=== PATIENT | female | born 1940 | race Caucasian/White ===

== ENCOUNTER 2017-12-22 20:01 | Outpatient (CLI) | payer MEDICARE, OTHER ==
[~2017-12-22 20:01] MED LIST: AMOX-355 PO; ASCO500T20 PO; CALC-250 PO; CALCIUM 500+VI1 EACH PO; CARV6.252 PO; FIBER THERAPY PO; HYDR-2890 PO; HYDR-700 PO; LORA0.5T PO; LVT.112T PO; MULT1CAP27 PO; PRD20T PO; VICODIN 5/325 PO; VITA150T PO
== END 2017-12-23 06:58 | disposition home or self-care (01) ==
LOC: SLEEP 20:01
PROVIDERS: ATTEND Nurse Practitioner Family
DX: G47.33 Obstructive sleep apnea (adult) (pediatric) (principal)
CPT/HCPCS: 95811

== ENCOUNTER 2018-07-26 14:30 | Outpatient (CLI) | payer MEDICARE, OTHER | END 2018-07-26 15:53 | disposition home or self-care (01) | LOC: SLEEP 14:30 | PROVIDERS: ATTEND Otolaryngology Otolaryngology/Facial Plastic Surgery | DX: G47.33 Obstructive sleep apnea (adult) (pediatric) (principal) ==

== ENCOUNTER 2018-08-31 19:54 | Outpatient (CLI) | payer MEDICARE, OTHER | END 2018-09-01 07:05 | disposition home or self-care (01) | LOC: SLEEP 19:54 | PROVIDERS: ATTEND Otolaryngology Otolaryngology/Facial Plastic Surgery | DX: G47.33 Obstructive sleep apnea (adult) (pediatric) (principal); R06.83 Snoring | CPT/HCPCS: 95811 ==

== ENCOUNTER → 2019-04-12 | Outpatient (CLI) | payer MEDICARE, OTHER ==
--- NOTE | 2019-04-12 10:54 | Diagnostic Imaging Report ---
INDICATION: Screening for osteoporosis. COMPARISON: None FINDINGS: The bone mineral density of the spine and left hip was measured. 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 The T score for the spine is -2.4. This does indicate severe osteopenia. The total T score for the left hip is -1.1 and the T score for the left femoral neck is -1.2. These values suggest mild osteopenia. AP Spine L1-L4: [BMD (g/cm2): 0.916] [T-Score: -2.4] [Z-Score: -1.0] [BMD Previous: nan] [BMD % Change: na] LT Hip Neck: [BMD (g/cm2): 0.865] [T-Score: -1.2] [Z-Score: 0.5] LT Hip Total: [BMD (g/cm2):0.863] [T-Score:-1.1] [Z-Score: 0.4] [BMD Previous: na] [BMD % Change: na] RT Hip Neck: [BMD (g/cm2):na] [T-Score:na] [Z-Score:na] RT Hip Total: [BMD (g/cm2):na] [T-score:na] [Z-Score:na] [BMD Previous:na] [BMD % Change:na] *Indicates significant change from prior examination based on 95% confidence level. World Health Organization criteria for BMD interpretation classify patients as Normal (T-score at or above -1.0), Osteopenic (T-score between -1.0 and -2.5) or Osteoporotic (T-score at or below -2.5). LIMITATIONS AND MODIFICATION: None. FRACTURE RISK (FRAX SCORE): The ten year probability of (%): Major Osteoporotic Fracture: [11.2] Hip Fracture: [2.1] IMPRESSION: 1. There is severe osteopenia of the spine but only mild osteopenia of the left hip. 2. The bone mineral density of the right hip could not be measured due to the presence of a total hip prosthesis. 3. See below National Osteoporosis Foundation guidelines on when to potentially initiate pharmacologic therapy. Based on the National Osteoporosis Foundation Guidelines, pharmacologic treatment should be initiated in any of the following, unless clinical conditions suggest otherwise: * Any patient with prior fragility fracture of the hip or vertebrae. A spine fracture indicates 5X risk for subsequent spine fracture and 2X risk for subsequent hip fracture. * Osteoporosis (T-score <-2.5). * Postmenopausal women and men age 50 and older with low bone mass/osteopenia (T-score between -1.0 and -2.5) by DXA and 10-year major osteoporotic fracture greater than 20% or a 10-year probability of hip fracture greater than 3%. These fracture risks are supplied above in the FRAX score, if applicable. * Clinician judgement and/or patient preferences may indicate treatment for people with 10-year fracture probabilities above or below these levels. Dictated by: Dictated on workstation # [id number]
== END ==
LOC: RAD 09:34
PROVIDERS: ATTEND Nurse Practitioner Family
DX: Z13.820 Encounter for screening for osteoporosis (principal); M85.89 Other specified disorders of bone density and structure, multiple sites; Z96.649 Presence of unspecified artificial hip joint; Z78.0 Asymptomatic menopausal state
CPT/HCPCS: 77080

== ENCOUNTER → 2020-02-22 | Outpatient (CLI) | payer MEDICARE, OTHER ==
--- NOTE | 2020-02-22 14:25 | Diagnostic Imaging Report ---
INDICATION: Chronic cough. TIME OF EXAM: 01:28 p.m. Correlation is made with prior chest from 02/07/2013. FINDINGS: Heart size is normal. There is a moderate-sized hiatal hernia. No infiltrates are identified. There is no effusion or pneumothorax. IMPRESSION: 1. Moderate-sized hiatal hernia. 2. No acute cardiopulmonary process is detected. Dictated by: Dictated on workstation # [id number]
== END ==
LOC: RAD FS 13:20
PROVIDERS: ATTEND Otolaryngology Otolaryngology/Facial Plastic Surgery
DX: K44.9 Diaphragmatic hernia without obstruction or gangrene (principal)
CPT/HCPCS: 71046

== ENCOUNTER → 2020-07-12 | Outpatient (CLI) | payer MEDICARE, OTHER ==
--- NOTE | 2020-07-12 11:46 | Diagnostic Imaging Report ---
EXAMINATION: CT Chest without contrast. TECHNIQUE: Multiple contiguous axial images were obtained through the chest without the use of intravenous contrast. All CT scans use one or more of the following dose optimizing techniques: automated exposure control, MA and/or KvP adjustment based on a patient size and exam type, or iterative reconstruction. HISTORY: Pulmonary infiltrates. COMPARISON: Chest radiograph 02/22/2020. FINDINGS: Thyroid: The thyroid is normal. Mediastinum: Heart size is normal without significant pericardial effusion. Calcifications of the aorta and coronary vessels. Thoracic aorta is normal in caliber. No suspicious lymphadenopathy. Lungs and airways: The lungs are clear without consolidation, pleural effusion, or pneumothorax. Biapical fibrosis. There is a 0.3 cm right lower lobe pulmonary nodule (series 3, image 118). The airways are normal. Upper abdomen: A moderate hiatal hernia is present. Musculoskeletal: Multilevel degenerative changes of the spine with a severe chronic compression fracture of the T12 vertebral body. IMPRESSION: 1. No acute abnormality in the chest. 2. A 0.3 cm right lower lobe pulmonary nodule. If patient is low risk for malignancy, no follow-up is indicated. If patient is high-risk for malignancy, consider follow-up CT of the chest in 12 months. Dictated by: Dictated on workstation # [id number]
== END ==
LOC: RAD FS 11:07
PROVIDERS: ATTEND Internal Medicine Pulmonary Disease
DX: R91.1 Solitary pulmonary nodule (principal)
CPT/HCPCS: 71250

== ENCOUNTER → 2023-01-08 | Outpatient (CLI) | payer MEDICARE, OTHER ==
--- NOTE | 2023-01-08 14:51 | Diagnostic Imaging Report ---
PROCEDURE: CT sinuses without contrast TECHNIQUE: Multiple contiguous axial images were obtained through the sinuses without the use of intravenous contrast. Coronal and sagittal reformations were then performed. Auto Exposure Controls were utilized during the CT exam to meet ALARA standards for radiation dose reduction. INDICATION: Recurrent sinusitis. No prior studies are available for comparison. The frontal sinuses clear. There is opacification of posterior right-sided ethmoid air cells. There has been resection of the medial wall the right maxillary sinus with uncinectomy. There is complete opacification of left maxillary sinus and left ostiomeatal complex. Sphenoid is well-aerated. Mastoids are well aerated. There is trace fluid in the right maxillary sinus. Maxillary sinus wall thickening on the right is noted consistent with chronic sinusitis. IMPRESSION: Postsurgical changes. There is a complete opacification left maxillary sinus and ostiomeatal complex consistent with sinusitis. There is opacification of the posterior half of the right ethmoid. No other significant abnormality is seen. Dictated by: Dictated on workstation # [id number]
== END ==
LOC: RAD FS 13:09
PROVIDERS: ATTEND Otolaryngology Otolaryngology/Facial Plastic Surgery
DX: J32.9 Chronic sinusitis, unspecified (principal)
CPT/HCPCS: 70486

== ENCOUNTER 2023-03-27 05:32 | Outpatient (CLI) | payer MEDICARE, OTHER ==
[~2023-03-27] VITALS: Ht 160 cm; Wt 80.9 kg
[2023-03-31] MEDS ORDERED: VENL75CA93 PO (14:40)
[2023-03-31] MEDS ORDERED: ATOR10TA66 PO (14:40)
[2023-03-31] MEDS ORDERED: CARV6.252 PO (14:40)
[2023-03-31] MEDS ORDERED: CETI10TA49 PO (14:40)
[2023-03-31] MEDS ORDERED: OMEP20CA18 PO (14:40)
[2023-03-31] MEDS ORDERED: MELO15TA39 PO (14:40)
[2023-03-31] MEDS ORDERED: MV-M1TAB20 PO (14:40)
[2023-03-31] MEDS ORDERED: FLUT9.9S NS (14:40)
[2023-03-31] MEDS ORDERED: BRAIN HEALTH (14:40)
[2023-03-31] MEDS ORDERED: BUDE10.2 IH (14:40)
[2023-03-31] MEDS ORDERED: UBID10CA5 PO (14:40)
[2023-03-31] MEDS ORDERED: KRIL500C PO (14:40)
[2023-03-31] MEDS ORDERED: CLON0.5T4 PO (14:40)
[2023-03-31] MEDS ORDERED: LEVO100T7 PO (14:40)
== END 2023-04-01 10:23 | disposition home or self-care (01) ==
LOC: PREOP 05:32
PROVIDERS: ATTEND Otolaryngology Otolaryngology/Facial Plastic Surgery
DX: Z01.818 Encounter for other preprocedural examination (principal)

== ENCOUNTER 2023-04-03 06:39 | Day surgery (SDC) | payer MEDICARE, OTHER ==
[2023-04-03] VITALS (11 sets, daily range): BP systolic 119–143; BP diastolic 52–82
[~2023-04-03 06:39] MED LIST changes: +ATOR10TA66 PO; +BRAIN HEALTH; +BUDE10.2 IH; +CETI10TA49 PO; +CLON0.5T4 PO; +FLUT9.9S NS; +KRIL500C PO; +LEVO100T7 PO; +MELO15TA39 PO; +MV-M1TAB20 PO; +OMEP20CA18 PO; +UBID10CA5 PO; +VENL75CA93 PO
[2023-04-03] MEDS ORDERED: LACTATED RINGERS 1,000 ML IV PRN (07:15)
[2023-04-03 07:50] LABS: BASOPHILS % (AUTO) 1 % (0-10); EOSINOPHILS # (AUTO) 0.3 10^3/uL (0.0-0.3); EOSINOPHILS % (AUTO) 5 % (0-10); HEMATOCRIT 33 % (35-52); HEMOGLOBIN 10.9 g/dL (11.5-16.0); LYMPHOCYTES # (AUTO) 2.9 10^3/uL (1.0-4.0); LYMPHOCYTES % (AUTO) 40 % (12-44); MEAN CORPUSCULAR HEMOGLOBIN 31 pg (25-34); MEAN CORPUSCULAR HGB CONC 33 g/dL (32-36); MEAN CORPUSCULAR VOLUME 94 fL (80-99); MEAN PLATELET VOLUME 9.6 fL (9.0-12.2); MONOCYTES # (AUTO) 0.6 10^3/uL (0.0-1.0); MONOCYTES % (AUTO) 9 % (0-12); NEUTROPHILS # (AUTO) 3.3 10^3/uL (1.8-7.8); NEUTROPHILS % (AUTO) 46 % (42-75); PLATELET COUNT 196 10^3/uL (130-400); WHITE BLOOD COUNT 7.2 10^3/uL (4.3-11.0)
[2023-04-03] MEDS ORDERED: LIDOCAINE/EPI 1%-1:100,000 (XYLOCAINE) 20ML ONE (07:59)
[2023-04-03] MEDS ORDERED: BSS 15 ML ONE (07:59)
[2023-04-03] MEDS ORDERED: COCAINE HCL 4% 2 ML SYR ONE (07:59)
[2023-04-03] MEDS ORDERED: PHENYLEPHRINE 0.5% NASAL SPR (NEO-SYNEPHRINE) REG ONE ×2 (07:59→08:36)
[2023-04-03] MEDS ORDERED: ASCO100024 PO (08:02)
[2023-04-03] MEDS ORDERED: AZEL137S11 NS (08:02)
[2023-04-03] MEDS ORDERED: ELDE350C PO (08:02)
[2023-04-03] MEDS ORDERED: UBID10CA5 PO (08:02)
[2023-04-03] MEDS ORDERED: IPRA30SP NS (08:02)
[2023-04-03 08:08] LABS: CALCIUM 9.4 MG/DL (8.5-10.1); CREATININE SERUM 1.3 MG/DL (0.60-1.30); POTASSIUM 4.1 MMOL/L (3.6-5.0)
[2023-04-03] MEDS ORDERED: CEFUROXIME INJECTION 750 MG in NS (IVPB) 50 ML IV ONE (08:15)
[2023-04-03] MEDS ORDERED: HYDROCORTISONE 100 MG/2 ML (Solu-CORTEF) VIAL IV ONE (08:15)
[2023-04-03] MEDS ORDERED: BSS 15 ML TOP ONE (08:35)
[2023-04-03] MEDS ORDERED: HYDROCORTISONE 100 MG/2 ML (Solu-CORTEF) VIAL ONE (08:35)
[2023-04-03] MEDS ORDERED: LIDOCAINE/EPI 1%-1:100,000 (XYLOCAINE) 20ML INJ ONE (08:36)
[2023-04-03] MEDS ORDERED: COCAINE HCL 4% 2 ML SYR NS ONE (08:37)
[2023-04-03] MEDS ORDERED: AMPICILLIN/SULBACTAM INJECTION 1.5 GM in NS (IVPB) 100 ML IV ONE (08:45)
[2023-04-03] MEDS ORDERED: ROCURONIUM 50 MG/5 ML (ZEMURON) VIAL IV ONE (08:53)
[2023-04-03] MEDS ORDERED: ONDANSETRON 4 MG/2 ML (SDV) Z0FRAN ONE (08:53)
[2023-04-03] MEDS ORDERED: LIDOCAINE PF 2% 5 ML (XYLOCAINE) VIAL ONE (08:53)
[2023-04-03] MEDS ORDERED: proPOfol 200 MG/20 ML (DIPRIVAN) VIAL IV ONE (08:53)
[2023-04-03] MEDS ORDERED: fentaNYL INJ 100 MCG/2 ML AMP ONE (08:54)
[2023-04-03] MEDS ORDERED: MIDAZOLAM 2 MG/2 ML (VERSED) VIAL ONE (08:54)
--- NOTE | 2023-04-03 09:22 | Progress Note-Pre Operative ---
Pre-Operative Progress Note Date of Available H&P: Apr 03, 2023 Date H&P Reviewed: Apr 03, 2023 Time H&P Reviewed: 09:00 History & Physical: H&P Reviewed, Patient Examed, No changes noted Changes from last HP NONE Pre-Operative Diagnosis: Right Ethomid Sinus Disease, LEft Sinus Disease EDITH MALONEY MD Apr 03, 2023 09:22
--- NOTE | 2023-04-03 09:23 | Progress Note-Post Operative ---
Post-Operative Progess Note Surgeon (s)/Scheduling Analyst (s) Surgeon EDITH MALONEY MD Scheduling Analyst n/a Pre-Operative Diagnosis Right Ethomid Sinus Disease, LEft Sinus Disease Post-Operative Diagnosis same Post-Op Procedure Note Date of Procedure: Apr 03, 2023 Name of Procedure Performed: Revision Right Ess, LEft Ess Description & Findings Description and Findings: n/a Anesthesia Type get Estimated Blood Loss minimal Packing none. Specimen(s) collected/removed right and left sinus disease EDITH MALONEY MD Apr 03, 2023 09:23
[2023-04-03] MEDS ORDERED: PROMETHAZINE INJ 25 MG/ML (PHENERGAN) AMP IVP PRN (09:30)
[2023-04-03] MEDS ORDERED: HYDROcodone/APAP 5 MG/325 MG (LORTAB) TAB PO PRN (09:30)
[2023-04-03] MEDS ORDERED: D5 1/2 NS W/KCL 20 MEQ/L 1,000 ML IV SCH (09:30)
[2023-04-03] MEDS ORDERED: predniSONE 20 MG TAB PO ONE (09:30)
[2023-04-03] MEDS ORDERED: NEOSTIGMINE 3 MG/3 ML VIAL ONE (10:10)
[2023-04-03] MEDS ORDERED: GLYCOPYRROLATE 0.2 MG/ML (ROBINUL) 2 ML VIAL ONE (10:10)
[2023-04-03] MEDS ORDERED: SEVOFLURANE (ULTANE) 15 ML INHAL SOLN ONE (10:12)
[2023-04-03] MEDS ORDERED: morphine INJ 10 MG/ML 1ML (SYR OR VIAL) IVP ONE (10:30)
[2023-04-03] MEDS ORDERED: ONDANSETRON 4 MG/2 ML (SDV) Z0FRAN IVP PRN (10:30)
[2023-04-03] MEDS ORDERED: AMOX-355 PO (11:28)
[2023-04-03] MEDS ORDERED: PRD20T PO (11:28)
[2023-04-03] MEDS ORDERED: ACHD5005 PO (11:28)
--- NOTE | 2023-04-03 12:09 | Anesthesia-General Post-Op ---
General Patient Condition Mental Status/LOC: Same as Preop Cardiovascular: Satisfactory Nausea/Vomiting: Absent Respiratory: Satisfactory Pain: Controlled Complications: Absent Post Op Complications Complications None Follow Up Care/Instructions Patient Instructions None needed. Anesthesia/Patient Condition Patient Condition Patient is doing well, no complaints, stable vital signs, no apparent adverse anesthesia problems. No complications reported per nursing. MARY KEENE CRNA Apr 03, 2023 12:09
== END 2023-04-03 12:40 ==
LOC: SDC 06:39
PROVIDERS: ATTEND Otolaryngology Otolaryngology/Facial Plastic Surgery
DX: J32.4 Chronic pansinusitis (principal); J01.21 Acute recurrent ethmoidal sinusitis; G47.33 Obstructive sleep apnea (adult) (pediatric); Z99.81 Dependence on supplemental oxygen
CPT/HCPCS: 36415; 80048; 85025; 87070; 87075; 87076; 87077; 87081; 87101; 87185; 87186; 87205; 93005